=== PATIENT | female | born 1950 | race Caucasian/White ===

== ENCOUNTER 2023-09-24 07:27 | Outpatient (CLI) | payer OTHER ==
[~2023-09-24 07:27] MED LIST: AZITHROMYCIN1 G/PKT PO; CELESTONE0.6 MG/5 M PO; NASONEX17 GM NS; PROVENTIL2 MG PO; TRISPEC DMX PED30 ML PO
== END 2023-09-24 07:38 | disposition home or self-care (01) ==
LOC: TOM 07:27
PROVIDERS: ATTEND Surgery
DX: K57.90 Diverticulosis of intestine, part unspecified, without perforation or abscess without bleeding (principal); K56.600 Partial intestinal obstruction, unspecified as to cause